=== PATIENT | male | born 1935 | race Caucasian/White ===

== ENCOUNTER 2018-05-04 10:28 | Day surgery (SDC) | payer MEDICARE, BC ==
[~2018-05-04] VITALS: Ht 172.7 cm; Wt 97.7 kg
[2018-05-04] VITALS (11 sets, daily range): BP systolic 93–115; BP diastolic 50–63
[2018-05-04] MEDS ORDERED: normal saline 1000ml 1,000 ML IV SCH (11:00)
[2018-05-04] MEDS ORDERED: MIDAZolam 5mg/ml 2ml vial IV ONE (11:00)
[2018-05-04] MEDS ORDERED: fentaNYL/PF 50MCG/1 ML 2ML syringe IV ONE (11:00)
[2018-05-04] MEDS ORDERED: ENAL20TA75 PO (11:32)
[2018-05-04] MEDS ORDERED: FLUT1DIS4 INH (11:32)
[2018-05-04] MEDS ORDERED: FURO-150 PO (11:32)
[2018-05-04] MEDS ORDERED: AMIO200T40 PO (11:32)
[2018-05-04] MEDS ORDERED: TERA5CAP4 PO (11:32)
[2018-05-04] MEDS ORDERED: FLO0.4C PO (11:32)
[2018-05-04] MEDS ORDERED: TIOT4MIS5 INH (11:32)
[2018-05-04] MEDS ORDERED: APIX5TAB3 PO (11:32)
[2018-05-04] MEDS ORDERED: ATOR40TA PO (11:32)
[2018-05-04] MEDS ORDERED: ALB0.5UD IH (11:32)
[2018-05-04] MEDS ORDERED: MULT-38 PO (11:32)
== END 2018-05-04 13:55 | disposition home or self-care (01) ==
LOC: SSTAY O 10:28
PROVIDERS: ATTEND Internal Medicine Interventional Cardiology
DX: I48.91 Unspecified atrial fibrillation (principal); I48.92 Unspecified atrial flutter; J44.9 Chronic obstructive pulmonary disease, unspecified; I25.810 Atherosclerosis of coronary artery bypass graft(s) without angina pectoris; I35.0 Nonrheumatic aortic (valve) stenosis; I27.20 Pulmonary hypertension, unspecified; I25.2 Old myocardial infarction; I12.9 Hypertensive chronic kidney disease with stage 1 through stage 4 chronic kidney disease, or unspecified chronic kidney disease; N18.9 Chronic kidney disease, unspecified; E78.5 Hyperlipidemia, unspecified; N40.0 Benign prostatic hyperplasia without lower urinary tract symptoms; Z79.01 Long term (current) use of anticoagulants; Z99.81 Dependence on supplemental oxygen; Z86.74 Personal history of sudden cardiac arrest; Z87.891 Personal history of nicotine dependence; Z95.1 Presence of aortocoronary bypass graft; Z95.5 Presence of coronary angioplasty implant and graft; Z72.89 Other problems related to lifestyle; Z85.51 Personal history of malignant neoplasm of bladder; Z79.899 Other long term (current) drug therapy; Z98.890 Other specified postprocedural states
CPT/HCPCS: 92960; 93005; J2250; J3010; J7030; A4620